=== PATIENT | male | born 2005 | race Caucasian/White ===

== ENCOUNTER 2025-03-07 19:48 | Inpatient (IN) ==
--- NOTE | 2025-03-07 20:08 | Emergency Department Note ---
Impression & Plan DKA (diabetic ketoacidosis), Newly diagnosed type 1 diabetes mellitus ED Provider Note NAME: LONI VARNER AGE: 19 SEX: M : 2005 ARRIVES VIA: Walk-In INFORMANT: Patient, ED PROVIDER(S): Henry Cruz MD CHIEF COMPLAINT: Abnormal labs concerning for diabetes MEDICAL DECISION MAKING: Patient presents with the above clinically not unwell. IV was established and blood work is obtained along with a VBG and a lactate. Patient was ordered 1 L of IV fluids. Patient does have hyperglycemia with a VBG of 7.32 with a pCO2 of 29. Patient's white count is normal with a normal hemoglobin and platelet count. Kidney function is unremarkable. Hemoglobin A1c of 10.7. Sugar 401. The patient's bicarb is 14. There was a delay in obtaining bicarb and the anion gap. I did discuss this with the hospitalist and we discussed treatment. Patient eventually was noted to have a gap of 24 with a sodium 133. Additional management of the patient's diabetes deferred to the inpatient service but based on labs concerning for DKA. Discussion w/ other healthcare providers: None Prior /Outside records reviewed: None Differential diagnosis: Diabetes, infection, dehydration, metabolic abnormality, hypo/hyperglycemia, electrolyte imbalance, anemia, UTI, pneumonia, thyroid dysfunction among others were considered. Diagnostics, as interpreted by me: ECG: Normal sinus rhythm, rate of 94 borderline MN with normal QRS normal axis T wave version in V2. No obvious STEMI. Cardiac monitoring: An order was placed for continuous cardiac monitoring. The monitor shows a rate of 102 with tachycardic and regular rhythm. Patient was placed on pulse oximetry Medical decision rules: None Imaging studies: None HPI: Patient presents due to concern for hyperglycemia. The patient reportedly has had increased thirst as well as urination ongoing the last 3 to 4 weeks. Patient states that he was concerned as he was getting up in the middle the night to go to the bathroom 3 times and thought that he was too young to have issues to where he was going to the bathroom so frequently. Patient did blood work completed through [facility] and was told that he likely had type 1 diabetes. No prior history. Patient denies any chest pain or shortness of breath no nausea vomiting or diarrhea. PAST MEDICAL HISTORY: See Below PAST SURGICAL HISTORY: See Below SOCIAL HISTORY: See Below HOME MEDICATIONS: See Below ALLERGIES: See Below VITALS: See Below PHYSICAL EXAMINATION: GENERAL: NAD, non-toxic. EYE EXAM: Normal conjunctiva. PERRL, no anisocoria and EOM's grossly intact w/o pain. OROPHARYNX: Moist mucus membranes, grossly normal dentition. NECK: Trachea midline, no stridor. LUNGS: Clear to auscultation. Normal chest wall mechanics. HEART: Tachycardic and regular, no MRG. ABDOMEN: Abdomen soft, non-tender, no masses, no rebound or guarding. BACK: No CVA TTP. SKIN: No rashes and no bruising. UPPER EXTREMITIES: Upper extremities are grossly normal. LOWER EXTREMITIES: Grossly normal, no edema. NEURO EXAM: Awake and alert, follows commands, no obvious facial asymmetry, normal speech, moves all 4 extremities. Past Med/Surg History Problem List (Updated 03/08/25 @ 19:34 by Henry Cruz MD) DKA (diabetic ketoacidosis) (Acute) Newly diagnosed type 1 diabetes mellitus (Acute) Social History Smoking Status: Never smoker Second Hand Exposure: No; Do You Dip or Chew Tobacco: No; Tobacco Cessation Education Requested by Patient: No Hx Alcohol Use: Yes Alcohol type: beer Hx Substance Use: No Preferred Language: Irish Communication Ability: Effective Cutter Wet Machine Required: No Beliefs That Will Affect Care: None Current Living Situation: Alone Other Information That Helps Us Care for You: No Feels Safe at Home: Yes Safety Concerns: Feels Safe At This Time Assistive Devices: None Allergies Allergies Allergy/AdvReac Type Severity Reaction Status Date / Time peanut Allergy Unknown Verified 10/05/24 21:02 Home Meds Home Medications Medication Instructions Recorded Confirmed diphenhydramine HCl 25 mg tablet 50 mg PO ONCE allergic reaction 10/05/24 03/07/25 (Benadryl Allergy) Results & Data (ED) Vital Signs Vital Signs - 24 hr 03/07/25 19:59 03/07/25 20:18 03/07/25 20:18 Temperature 36.6 C Temperature Source Temporal Artery Scan Pulse Rate 116 H 96 H Pulse Rate [Apical] 96 H Pulse Rhythm Regular Regular Pulse Rhythm [Apical] Regular Pulse Strength Normal Pulse Strength [Apical] Normal Respiratory Rate 18 Respiratory Effort / Characteristics Non-Labored Spontaneous Non-Labored Spontaneous Respiratory Depth Normal Normal Respiratory Pattern Regular Regular Blood Pressure 125/76 Blood Pressure [Right Arm] 128/68 Blood Pressure Mean 92 Blood Pressure Mean [Right Arm] 88 Blood Pressure Position Sitting Blood Pressure Position [Right Arm] Lying Pulse Oximetry 100 100 100 Oxygen Delivery Method Room Air Room Air Room Air Sepsis Recent Fever Within 48 Hours No Sepsis New/Unexplained Change in Mental Status N/A Sepsis Action Taken by Nursing No Action Required 03/07/25 20:46 03/07/25 22:00 Temperature Temperature Source Pulse Rate 99 H Pulse Rate [Apical] 97 H Pulse Rhythm Pulse Rhythm [Apical] Regular Pulse Strength Pulse Strength [Apical] Normal Respiratory Rate 18 Respiratory Effort / Characteristics Non-Labored Spontaneous Respiratory Depth Normal Respiratory Pattern Regular Blood Pressure Blood Pressure [Right Arm] 130/76 Blood Pressure Mean Blood Pressure Mean [Right Arm] 94 Blood Pressure Position Blood Pressure Position [Right Arm] Lying Pulse Oximetry 100 Oxygen Delivery Method Room Air Sepsis Recent Fever Within 48 Hours Sepsis New/Unexplained Change in Mental Status Sepsis Action Taken by Skilled Nursing Medications Current Medication List: was personally reviewed by me Laboratory Data Attestation: I reviewed the patient's lab results. 03/07/25 20:20 03/08/25 17:28 Lab Results 03/07/25 03/07/25 03/07/25 Range/Units 20:03 20:20 21:52 WBC 10.05 (4.8-10.8) K/ul RBC 5.15 (4.70-6.10) M/uL Hgb 15.2 (14.0-18.0) g/dl POC Hgb 13.3 L (14.0-18.0) g/dl Hct 44.2 (42.0-52.0) % POC Hct 39 L (42-52) % MCV 85.8 (80.0-100.0) fL MCH 29.5 (25.0-34.0) pg MCHC 34.4 (32.0-36.0) g/dL RDW Std Deviation 41.7 (36.4-46.3) fL RDW Coeff of Fely 13.6 (11.5-14.5) % Plt Count 187 (130-400) K/uL MPV 10.4 (9.4-12.4) fL Immature Gran % (Auto) 0.3 % Neut % (Auto) 64.6 % Lymph % (Auto) 28.0 % [place] % (Auto) 4.9 % Eos % (Auto) 1.7 % Baso % (Auto) 0.5 % Neut # (Auto) 6.50 (1.40-6.50) K/uL Lymph # (Auto) 2.81 (1.20-3.40) K/uL [place] # (Auto) 0.49 (0.11-0.59) K/uL Eos # (Auto) 0.17 (0.00-0.50) K/uL Baso # (Auto) 0.05 (0.00-0.20) K/uL Immature Gran # (Auto) 0.03 (0.01-0.20) K/uL VBG pH 7.32 L (7.36-7.41) VBG pCO2 29 L (38-50) mmHg VBG pO2 46 mmHg VBG HCO3 15 mmol/L VBG O2 Saturation 77.9 % VBG Base Excess -9.8 mEq/L POC Sodium 137 (135-144) mmol/L Sodium 133 L (136-145) mmol/L POC Potassium 3.2 L (3.3-5.0) mmol/L Potassium 3.4 L (3.5-5.1) mmol/L POC Chloride 100 L (101-112) mmol/L Chloride 95 L (98-107) mmol/L Carbon Dioxide 14 L (21-32) mmol/L POC Total CO2 14 L (24-31) mmol/L Anion Gap 24 H (3-11) POC Anion Gap 26.0 H (16-25) mmol/L POC BUN 13 (7-18) mg/dl BUN 15 (6-23) mg/dl Creatinine 1.07 (0.6-1.4) mg/dl POC Creatinine 0.8 mg/dl Est Cr Clr Drug Dosing 112.9 ml/min eGFR 101.88 BUN/Creatinine Ratio 14.0 (10-20) Glucose 401 H* (70-99(Fasting)) mg/dl POC Glucose 393 H* (70-99) mg/dl POC Glucose (other) 352 H* (70-99) mg/dl Estimat Average Glucose 260 mg/dl Hemoglobin A1c 10.7 H (4.5-5.6) % Lactate 1.6 (0.4-2.0) mmol/L Calcium 10.0 (8.6-10.3) mg/dl POC Ioniz Calcium Hai 1.17 mmol/l Magnesium 1.8 (1.7-2.4) mg/dl Total Bilirubin 1.3 H (0.2-1.0) mg/dl AST 18 (13-39) U/L ALT 19 (7-52) U/L Alkaline Phosphatase 114 H (34-104) U/L Total Protein 8.5 H (6.0-8.3) gm/dl Albumin 5.3 H (3.4-5.0) gm/dl Globulin 3.2 (2.5-4.0) gm/dl Albumin/Globulin Ratio 1.7 (0.9-2) Urine Color Yellow Urine Appearance Clear (Clear) Urine pH 5.0 (4.5-7.5) Ur Specific [place] 1.042 H (1.000-1.030) Urine Protein Trace H (Negative) Urine Glucose (UA) 2+ H (Negative) Urine Ketones 4+ H (Negative) Urine Blood Trace H (Negative) Urine Nitrite Negative (Negative) Urine Bilirubin Negative (Negative) Urine Urobilinogen Negative (Negative) Ur Leukocyte Esterase Negative (Negative) Urine WBC (Auto) 0-5 (0-5) /hpf Urine RBC (Auto) 0-2 (0-2) /hpf U Hyaline Cast (Auto) 0-2 (0-2) /lpf U Epithel Cells (Auto) 0-2 (0-2) /hpf Urine Bacteria (Auto) None Seen (None Seen) Urine Comment 03/07/25 Range/Units 21:59 WBC (4.8-10.8) K/ul RBC (4.70-6.10) M/uL Hgb (14.0-18.0) g/dl POC Hgb 13.3 L (14.0-18.0) g/dl Hct (42.0-52.0) % POC Hct 39 L (42-52) % MCV (80.0-100.0) fL MCH (25.0-34.0) pg MCHC (32.0-36.0) g/dL RDW Std Deviation (36.4-46.3) fL RDW Coeff of Fely (11.5-14.5) % Plt Count (130-400) K/uL MPV (9.4-12.4) fL Immature Gran % (Auto) % Neut % (Auto) % Lymph % (Auto) % [place] % (Auto) % Eos % (Auto) % Baso % (Auto) % Neut # (Auto) (1.40-6.50) K/uL Lymph # (Auto) (1.20-3.40) K/uL [place] # (Auto) (0.11-0.59) K/uL Eos # (Auto) (0.00-0.50) K/uL Baso # (Auto) (0.00-0.20) K/uL Immature Gran # (Auto) (0.01-0.20) K/uL VBG pH (7.36-7.41) VBG pCO2 (38-50) mmHg VBG pO2 mmHg VBG HCO3 mmol/L VBG O2 Saturation % VBG Base Excess mEq/L POC Sodium 136 (135-144) mmol/L Sodium (136-145) mmol/L POC Potassium 3.2 L (3.3-5.0) mmol/L Potassium (3.5-5.1) mmol/L POC Chloride 102 (101-112) mmol/L Chloride (98-107) mmol/L Carbon Dioxide (21-32) mmol/L POC Total CO2 15 L (24-31) mmol/L Anion Gap (3-11) POC Anion Gap 24.0 (16-25) mmol/L POC BUN 13 (7-18) mg/dl BUN (6-23) mg/dl Creatinine (0.6-1.4) mg/dl POC Creatinine 0.8 mg/dl Est Cr Clr Drug Dosing ml/min eGFR BUN/Creatinine Ratio (10-20) Glucose (70-99(Fasting)) mg/dl POC Glucose (70-99) mg/dl POC Glucose (other) 350 H (70-99) mg/dl Estimat Average Glucose mg/dl Hemoglobin A1c (4.5-5.6) % Lactate (0.4-2.0) mmol/L Calcium (8.6-10.3) mg/dl POC Ioniz Calcium Hai 1.18 mmol/l Magnesium (1.7-2.4) mg/dl Total Bilirubin (0.2-1.0) mg/dl AST (13-39) U/L ALT (7-52) U/L Alkaline Phosphatase (34-104) U/L Total Protein (6.0-8.3) gm/dl Albumin (3.4-5.0) gm/dl Globulin (2.5-4.0) gm/dl Albumin/Globulin Ratio (0.9-2) Urine Color Urine Appearance (Clear) Urine pH (4.5-7.5) Ur Specific [place] (1.000-1.030) Urine Protein (Negative) Urine Glucose (UA) (Negative) Urine Ketones (Negative) Urine Blood (Negative) Urine Nitrite (Negative) Urine Bilirubin (Negative) Urine Urobilinogen (Negative) Ur Leukocyte Esterase (Negative) Urine WBC (Auto) (0-5) /hpf Urine RBC (Auto) (0-2) /hpf U Hyaline Cast (Auto) (0-2) /lpf U Epithel Cells (Auto) (0-2) /hpf Urine Bacteria (Auto) (None Seen) Urine Comment Administered Medications Potassium Chloride/Sodium Chloride (1/2 Nss + 20meq Kcl 1000ml) 20 meq in 1,000 mls @ 250 mls/hr IV .Q4H TERRY Stop: 03/11/25 11:14 Last Admin: 03/08/25 17:00 Dose: 250 mls/hr Documented By: Infusion: 03/08/25 15:24 Dose: Infused Documented By: Admin: 03/08/25 11:24 Dose: 250 mls/hr Documented By: CHINEDU Insulin Aspart (Insulin Aspart Per Unit Charge) 0 units SC ACHS TERRY Stop: 04/07/25 11:29 Last Admin: 03/08/25 17:48 Dose: 5 units Documented By: CHINEDU Co-signed By: ARLENE Admin: 03/08/25 12:43 Dose: 8 units Documented By: CHINEDU Co-signed By: CLIFF Discontinued Medications Sodium Chloride (Nss) 1,000 mls @ 999 mls/hr IV .Q1H1M TERRY Stop: 03/07/25 21:30 Last Infusion: 03/07/25 21:47 Dose: Infused Documented By: Admin: 03/07/25 20:26 Dose: 999 mls/hr Documented By: JOHANNA Lactated Ringer's (Lr) 1,000 mls @ 999 mls/hr IV .Q1H1M ONE Stop: 03/07/25 23:35 Last Admin: 03/07/25 22:54 Dose: Not Given Documented By: JOHANNA Sodium Chloride (Nss) 1,000 mls @ 999 mls/hr IV .Q1H1M ONE Stop: 03/07/25 23:39 Last Infusion: 03/08/25 00:06 Dose: Infused Documented By: Admin: 03/07/25 22:53 Dose: 999 mls/hr Documented By: MPD Potassium Chloride/Sodium Chloride (1/2 Nss + 20meq Kcl 1000ml) 20 meq in 1,000 mls @ 250 mls/hr IV .Q4H TERRY Stop: 03/10/25 22:59 Last Infusion: 03/08/25 02:28 Dose: Infused Documented By: Admin: 03/08/25 00:04 Dose: 250 mls/hr Documented By: ESTRELLA Insulin Human Regular 250 (units/ Sodium Chloride) 250 mls @ 1.2 mls/hr IV .Q24H TERRY; Protocol Stop: 04/07/25 00:02 Last Titration: 03/08/25 11:15 Dose: Infused Documented By: LMP Co-signed By: ARLENE Titration: 03/08/25 10:04 Dose: 1.2 units/hr, 1.2 mls/hr Documented By: LMP Co-signed By: MES Titration: 03/08/25 09:19 Dose: 1.2 units/hr, 1.2 mls/hr Documented By: LMP Co-signed By: AJB Titration: 03/08/25 08:23 Dose: 1 units/hr, 1 mls/hr Documented By: LMP Co-signed By: KJM Titration: 03/08/25 06:20 Dose: 0 units/hr, 0 mls/hr Documented By: MPC Co-signed By: FREIGHT ENGINEER Titration: 03/08/25 05:24 Dose: 2.4 units/hr, 2.4 mls/hr Documented By: MPC Co-signed By: FREIGHT ENGINEER Titration: 03/08/25 04:01 Dose: 3 units/hr, 3 mls/hr Documented By: MPC Co-signed By: MARCO Titration: 03/08/25 02:56 Dose: 3 units/hr, 3 mls/hr Documented By: MPC Co-signed By: JAA Titration: 03/08/25 02:32 Dose: 3 units/hr, 3 mls/hr Documented By: ESTRELLA Co-signed By: MARCO Titration: 03/08/25 02:03 Dose: 0 units/hr, 0 mls/hr Documented By: ESTRELLA Co-signed By: MARCO Admin: 03/08/25 00:48 Dose: 5 units/hr, 5 mls/hr Documented By: ESTRELLA Co-signed By: PATRICIA Insulin Human Regular 5 units/ (Syringe) 5 mls @ 0 mls/min IV ONE ONE Stop: 03/08/25 00:31 Last Admin: 03/08/25 00:46 Dose: 5 mls/min Documented By: ESTRELLA Co-signed By: PATRICIA Magnesium Sulfate/Dextrose (Magnesium Sulfate / D5w) 1 gm in 100 mls @ 50 mls/hr IV Q2H TERRY Stop: 03/08/25 05:44 Last Infusion: 03/08/25 05:55 Dose: Infused Documented By: Admin: 03/08/25 03:42 Dose: 50 mls/hr Documented By: Infusion: 03/08/25 03:40 Dose: Infused Documented By: Admin: 03/08/25 01:55 Dose: 50 mls/hr Documented By: ESTRELLA Potassium Chloride/Dextrose/Sod Cl (D5w And 1/2nss + 20meq Kcl) 20 meq in 1,000 mls @ 250 mls/hr IV .Q4H [facility] Stop: 03/11/25 02:29 Last Admin: 03/08/25 13:07 Dose: Not Given Documented By: Infusion: 03/08/25 11:27 Dose: Infused Documented By: Admin: 03/08/25 06:42 Dose: 250 mls/hr Documented By: Infusion: 03/08/25 06:29 Dose: Infused Documented By: Admin: 03/08/25 02:29 Dose: 250 mls/hr Documented By: ESTRELLA Magnesium Sulfate/Dextrose (Magnesium Sulfate / D5w) 1 gm in 100 mls @ 50 mls/hr IV ONE ONE Stop: 03/08/25 12:11 Last Infusion: 03/08/25 13:08 Dose: Infused Documented By: Admin: 03/08/25 11:05 Dose: 50 mls/hr Documented By: CHINEDU Potassium Phosphate 15 mmol/ (Sodium Chloride) 255 mls @ 88 mls/hr IV ONE ONE Stop: 03/08/25 13:23 Last Infusion: 03/08/25 14:04 Dose: Infused Documented By: Admin: 03/08/25 11:04 Dose: 88 mls/hr Documented By: LMP Insulin Aspart (Insulin Aspart Per Unit Charge) 0 units SC ACHS TERRY Stop: 04/07/25 07:29 Last Admin: 03/08/25 08:37 Dose: 3 units Documented By: LMP Co-signed By: ANA Insulin Glargine (Lantus Per Unit Charge) 12 units SQ NOW STA Stop: 03/08/25 07:42 Last Admin: 03/08/25 08:10 Dose: 12 units Documented By: LMP Co-signed By: NAPOLEON Insulin Glargine (Lantus Per Unit Charge) 6 units SQ NOW STA Stop: 03/08/25 11:09 Last Admin: 03/08/25 11:20 Dose: 6 units Documented By: LMP Co-signed By: ARLENE Potassium Chloride (Potassium Chloride Crtab 20 Meq Tabcr) 40 meq PO NOW STA Stop: 03/07/25 22:54 Last Admin: 03/07/25 23:30 Dose: 40 meq Documented By: Potassium Chloride (Potassium Chloride Crtab 20 Meq Tabcr) 40 meq PO NOW STA Stop: 03/08/25 01:33 Last Admin: 03/08/25 01:55 Dose: 40 meq Documented By: ESTRELLA Potassium Chloride (Potassium Chloride Crtab 20 Meq Tabcr) 40 meq PO NOW STA Stop: 03/08/25 07:18 Last Admin: 03/08/25 08:10 Dose: 40 meq Documented By: LMP Discharge Plan Visit Data Chief Complaint: Testing Request Stated Complaint: DIABETES EVALUATION ED Provider: Henry Cruz Discharge Problem: DKA (diabetic ketoacidosis), Newly diagnosed type 1 diabetes mellitus Patient Disposition: Admitted As Inpatient Condition: Good Discharge Instructions Interventions: ED Discharge Assessment Last Done: 03/07/25 23:35 Discharge Problem: DKA (diabetic ketoacidosis) Qualifiers: Diabetes mellitus type: type 1 Diabetes mellitus complication detail: without coma Qualified Code(s): E10.10 - Type 1 diabetes mellitus with ketoacidosis without coma
[2025-03-07] MEDS: SODIUM CHLORIDE 0.9% 1,000 ML IV SCH (20:26)
[2025-03-07 20:37] LABS: Base Excess VBG -9.8 mEq/L; HCO3 VBG 15 mmol/L; Oxygen Saturation VBG 77.9 %; PCO2 VBG 29 mmHg (38-50); PO2 VBG 46 mmHg; pH VBG 7.32 (7.36-7.41)
[2025-03-07 20:40] LABS: Hematocrit (blood only) 44.2 % (42.0-52.0); Hemoglobin 15.2 g/dl (14.0-18.0); Immature Granulocytes # (auto) 0.03 K/uL (0.01-0.20); Immature Granulocytes % (auto) 0.3 %; Mean Corpuscular Hemoglobin 29.5 pg (25.0-34.0); Mean Corpuscular Volume 85.8 fL (80.0-100.0); Platelet Count 187 K/uL (130-400); RDW Standard Deviation 41.7 fL (36.4-46.3); Red Blood Count 5.15 M/uL (4.70-6.10); White Blood Count 10.05 K/ul (4.8-10.8)
[2025-03-07 20:54] LABS: Appearance Urine Clear (Clear); Bacteria Urine Automated None Seen (None Seen); Cast Urine Automated 0-2 /lpf (0-2); Epithelial Cell Urine Auto 0-2 /hpf (0-2); Glucose Urine UA 2+ (Negative); RBC Urine Automated 0-2 /hpf (0-2); WBC Urine Automated 0-5 /hpf (0-5)
[2025-03-07 21:04] LABS: Alanine Aminotransferase 19.0 U/L (7-52); Albumin Globulin Ratio 1.7 (0.9-2); Alkaline Phosphatase 114.0 U/L (34-104); Bilirubin,Total 1.3 mg/dl (0.2-1.0); Blood Urea Nitrogen 15.0 mg/dl (6-23); Calcium 10.0 mg/dl (8.6-10.3); Carbon Dioxide 14.0 mmol/L (21-32); Creatinine Clr Calc Pharmacy 112.9 ml/min; Globulin 3.2 gm/dl (2.5-4.0); Glucose 401.0 mg/dl (70-99(Fasting)); Total Protein 8.5 gm/dl (6.0-8.3)
[2025-03-07 22:17] LABS: Anion Gap 24.0 (3-11); Chloride 95.0 mmol/L (98-107); Potassium 3.4 mmol/L (3.5-5.1); Sodium 133.0 mmol/L (136-145)
[2025-03-07 22:34] LABS: Hemoglobin A1C 10.7 % (4.5-5.6)
--- NOTE | 2025-03-07 22:52 | History & Physical Report ---
Date of Service March 07, 2025 Assessment & Plan (1) DKA (diabetic ketoacidosis): (2) Newly diagnosed type 1 diabetes mellitus: Plan Patient is a 19 y/o M who was admitted for management of DKA in the setting of newly diagnosed diabetes mellitus. DKA - Admit to PCU/Tele - s/p NSS 1L bolus x2 in ED and 1/2 NSS w/ 20mEq K+ started after - Insulin gtt ordered - Bsg checks q1h - BMP, Mg, VBG q4h - Switch NSS to D5 once bsg < 250 - D/c insulin drip once AG closes and bsg < 200, at which point will switch to insulin subQ which could potentially be administered 2 hrs before d/c drip to try and prevent rebound hyperglycemia Diabetes mellitus, new diagnosis - No family history of DM and no other personal medical history - Hgb A1c at time of admission of ~10% - Given current presentation, suspect type 1 to be likely - Likely would be discharged with insulin regimen - Would encourage establishing care with PCP or endocrinology for continued monitoring and management after discharge Dispo: PCU/Tele Diet: DM-2 VTE ppx: Ambulation Code Status: FULL History of Present Illness Chief Complaint: Abnormal labs Primary Care Provider: [facility] Patient is a 19 y/o M w/ no significant medical history who came to the ED per recc of provider in [facility] after noting to have significantly elevated BSG. Over the last 3 months, patient has been experiencing polyuria and polydipsia w/o polyphagia or changes in appetite. Over the last 3 days, patient reports having frequent episodes of nocturia as well which prompted him to go to [facility] for evaluation, where he was also noted to have lost close to 15 lbs unintentionally. Denies having any confusion, weakness, N/V/D, abdominal pain, headaches, vision changes, lightheadedness, dizziness, syncopal episodes, fevers, chills, chest pain, SOB, or other associated sxs. They had collected labs in this visit where they found his blood sugar to be very elevated with associated electrolyte changes (cannot recall what or the levels), and was advised to go to ED. Patient denies having any family history of diabetes mellitus and no other personal medical history save for seasonal allergies for which he takes claritin as needed. ED Course: NSS bolus x1 Labs/Imaging: CBC w/o leukocytosis, hgb of 15.2, plt of 187. CMP with hyponatremia of 133, potassium of 3.4, HCO3 of 14, AG of 24, Cr of 1.07, and bsg of 401. VBG with pH of 7.32 and pCO2 of 29. Hgb A1c of 10.75. T.bili or 1.3 and alk phos of 114, AST and ALT wnl. U/A w/o signds of infection but is showing trace proteins, 2+ glucose, 4+ ketones, and trace blood. Medical History: [Reviewed] Medications: [Reviewed] Surgical History: [Reviewed] Family history: [Reviewed] Allergies: [Reviewed] Social History: [Reviewed] Code Status: FULL Allergies Allergy/AdvReac Type Severity Reaction Status Date / Time peanut Allergy Unknown Verified 10/05/24 21:02 Home Medications Medication Instructions Recorded Confirmed Type diphenhydramine HCl 25 mg tablet 50 mg PO ONCE allergic reaction 10/05/24 03/07/25 History (Benadryl Allergy) Past Med/Surg History Problem List (Updated 03/08/25 @ 19:34 by Henry Cruz MD) DKA (diabetic ketoacidosis) (Acute) Newly diagnosed type 1 diabetes mellitus (Acute) Social History Smoking Status: Never smoker Second Hand Exposure: No; Do You Dip or Chew Tobacco: No; Tobacco Cessation Education Requested by Patient: No Hx Alcohol Use: Yes Alcohol type: beer Hx Substance Use: No Preferred Language: Urdu Communication Ability: Effective Stitcher Set Up Operator Automatic Required: No Beliefs That Will Affect Care: None Current Living Situation: Alone Other Information That Helps Us Care for You: No Feels Safe at Home: Yes Safety Concerns: Feels Safe At This Time Assistive Devices: None Review of Systems Review of Systems: As per HPI Physical Exam Physical Exam: GENERAL: AAOx3, afebrile, calm, non toxic, NAD HEAD: AT, NC EYES: EOM intact, LUIS THROAT: normal to visual inspection CHEST: symmetric chest expansions CARDIO: RRR, no r/m/g PULMONARY: CTA b/l, normal respiratory effort, no respiratory distress, breathing comfortably at room air GI: soft, nontender, nondistended EXTREMITIES: no swelling or calf tenderness in b/l LE SKIN: no rashes observed Results & Data Results & Data Vital Signs (Past 12 Hours) Vital Signs Temp Pulse Pulse Resp BP BP Pulse Ox 03/07/25 22:00 97 H 18 130/76 100 03/07/25 20:46 99 H 03/07/25 20:18 96 H 100 03/07/25 20:18 96 H 128/68 100 03/07/25 19:59 36.6 C 116 H 18 125/76 100 O2 Del Method 03/07/25 22:00 Room Air 03/07/25 20:46 03/07/25 20:18 Room Air 03/07/25 20:18 Room Air 03/07/25 19:59 Room Air Supervising Physician Co-Signing Physician Notes Attending addendum: I have physically seen this patient, have supervised the medical residents activities, and agree with the H&P unless as otherwise noted. Assessment and Plan: The patient is a 19-year-old male with no previous medical history, who presented to the emergency department reporting a generalized just does not feel well, being fatigued, urinating frequently, and has had a 15 pound weight loss in the past 3 months. In emergency department laboratories with glucose of 401, and A1c of 10.7, with anion gap of 24, suggesting DKA with new onset diabetes mellitus. Patient was referred for to the [facility] for further evaluation and treatment. DKA/new onset diabetes mellitus type 1- Admit to PCU due to intensive nursing needed Glucose 401 on admission with A1c 10.7 and anion gap 24 Status post 1 L normal saline bolus x 2 from the ED Start insulin drip per protocol Give Klor-Con 40 mill equivalents p.o. x 1 Placed on half-normal saline with KCl 20 mEq at 250 mL/h, adding D5 with glucose is less than 250 Continue to adjust IV fluids per protocol Endpoint for treatment is normal anion gap, then convert insulin drip to subcu long-acting and short acting coverage BS she has every hour BMP, magnesium, VBG every 4 hours Resident Activity Tracking Resident Involvement: Resident Care Provided Care Provided: Adult Hospital Medicine
[2025-03-07] MEDS: SODIUM CHLORIDE 0.9% 1,000 ML IV ONE (22:53)
[2025-03-07] MEDS: LACTATED RINGER'S 1,000 ML IV ONE (22:54)
[2025-03-07 23:29] LABS: Base Excess VBG -8.6 mEq/L; HCO3 VBG 17 mmol/L; Oxygen Saturation VBG 70.2 %; PCO2 VBG 33 mmHg (38-50); PO2 VBG 42 mmHg; pH VBG 7.31 (7.36-7.41)
[2025-03-07] MEDS: POTASSIUM CHLORIDE CRTAB 20 MEQ TABCR PO STA (23:30)
[2025-03-07 23:59] LABS: Magnesium 1.8 mg/dl (1.7-2.4)
[2025-03-08] MEDS ORDERED: MELATONIN 3 MG TAB PO PRN (00:03)
[2025-03-08] MEDS ORDERED: ACETAMINOPHEN 325 MG TAB PO PRN (00:03)
[2025-03-08] MEDS ORDERED: STAT IV Infusion **Titration per Protocol STA (00:03)
[2025-03-08] MEDS ORDERED: PENDING 1/2NSS+20mEq KCL IVF SCH (00:03)
[2025-03-08] MEDS ORDERED: ONDANSETRON INJ 2 MG/ML 2 ML VIAL IV PRN (00:03)
[2025-03-08] MEDS ORDERED: PHARMACY GLYCEMIC MGMT CONSULT PRN (00:03)
[2025-03-08] MEDS ORDERED: POLYETHYLENE (MIRALAX) 17 GM PACK PO PRN (00:03)
[2025-03-08] MEDS: SODIUM CHLOR 0.45% + 20MEQ KCL 20 MEQ/1,000 ML BAG IV SCH ×2 (00:04→11:24)
[2025-03-08] MEDS: INSULIN HUMAN REGULAR IV BOLUS 5 UNITS in SYRINGE 0 ML IV ONE (00:46)
[2025-03-08] MEDS: INSULIN REGULAR 250 UNITS in SODIUM CHLORIDE 0.9% 247.5 ML IV SCH (00:48)
[2025-03-08 01:10] LABS: Magnesium 1.5 mg/dl (1.7-2.4)
[2025-03-08 01:15] LABS: Anion Gap 15.0 (3-11); Blood Urea Nitrogen 11.0 mg/dl (6-23); Calcium 7.8 mg/dl (8.6-10.3); Carbon Dioxide 16.0 mmol/L (21-32); Chloride 104.0 mmol/L (98-107); Creatinine Clr Calc Pharmacy 147.4 ml/min; Glucose 291.0 mg/dl (70-99(Fasting)); Potassium 3.3 mmol/L (3.5-5.1); Sodium 135.0 mmol/L (136-145)
[2025-03-08] MEDS: MAGNESIUM SULFATE / D5W 1 GM/100 ML BAG IV SCH (01:55)
[2025-03-08] MEDS: POTASSIUM CHLORIDE CRTAB 20 MEQ TABCR PO STA ×2 (01:55→08:10)
[2025-03-08] MEDS: D5W AND 1/2NSS + 20MEQ KCL 20 MEQ/1,000 ML BAG IV SCH (02:29)
[2025-03-08 06:51] LABS: Anion Gap 9.0 (3-11); Blood Urea Nitrogen 9.0 mg/dl (6-23); Calcium 7.5 mg/dl (8.6-10.3); Carbon Dioxide 21.0 mmol/L (21-32); Chloride 108.0 mmol/L (98-107); Creatinine Clr Calc Pharmacy 181.6 ml/min; Glucose 123.0 mg/dl (70-99(Fasting)); Magnesium 2.2 mg/dl (1.7-2.4); Potassium 3.0 mmol/L (3.5-5.1); Sodium 138.0 mmol/L (136-145)
[2025-03-08] MEDS: LANTUS PER UNIT CHARGE SQ STA ×2 (08:10→11:20)
[2025-03-08] MEDS: INSULIN ASPART PER UNIT CHARGE SC SCH ×2 (08:37→12:43)
[2025-03-08 10:05] LABS: Anion Gap 10.0 (3-11); Blood Urea Nitrogen 7.0 mg/dl (6-23); Calcium 7.6 mg/dl (8.6-10.3); Carbon Dioxide 20.0 mmol/L (21-32); Chloride 105.0 mmol/L (98-107); Creatinine Clr Calc Pharmacy 193.0 ml/min; Glucose 273.0 mg/dl (70-99(Fasting)); Potassium 3.5 mmol/L (3.5-5.1); Sodium 135.0 mmol/L (136-145)
[2025-03-08 10:07] LABS: Magnesium 1.8 mg/dl (1.7-2.4)
[2025-03-08] MEDS ORDERED: POTASSIUM PHOS 3 MMOL/1 ML INFUSION IV STA (10:12)
[2025-03-08] MEDS: POTASSIUM PHOSPHATE 15 MMOL in SODIUM CHLORIDE 0.9% 250 ML IV ONE (11:04)
[2025-03-08] MEDS: MAGNESIUM SULFATE / D5W 1 GM/100 ML BAG IV ONE (11:05)
[2025-03-08] MEDS ORDERED: INSULIN ASPART PER UNIT CHARGE SC ONE (11:10)
[2025-03-08] MEDS ORDERED: GLUCAGON FOR INJ 1 MG VIAL SQ PRN (11:15)
[2025-03-08] MEDS ORDERED: CARBOHYDRATES FOR HYPOGLYCEMIA PO PRN (11:15)
[2025-03-08] MEDS ORDERED: GLUCOSE 40% GEL 15 GM TUBE PO PRN (11:15)
[2025-03-08] MEDS ORDERED: GLUCOSE 10 TAB/TUBE PO PRN (11:15)
[2025-03-08] MEDS ORDERED: DEXTROSE 50% 50 ML SYRINGE IV PRN (11:15)
--- NOTE | 2025-03-08 11:59 | Hospitalist Progress Note ---
Date of Service March 08, 2025 Assessment & Plan (1) DKA (diabetic ketoacidosis): (2) Newly diagnosed type 1 diabetes mellitus: Plan Patient is a 19 y/o M who was admitted for management of DKA in the setting of newly diagnosed diabetes mellitus. DKA - Admit to PCU/Tele - s/p NSS 1L bolus x2 in ED and 1/2 NSS w/ 20mEq K+ started after - Insulin gtt ordered - Bsg checks q1h - BMP, Mg, VBG q4h - Switch NSS to D5 once bsg < 250 - D/c insulin drip once AG closes and bsg < 200, at which point will switch to insulin subQ which could potentially be administered 2 hrs before d/c drip to try and prevent rebound hyperglycemia - Will do the 18U of basal insulin per day and adjust aspart insulin monitoring his blood glucose. Diabetes mellitus, new diagnosis - No family history of DM and no other personal medical history - Hgb A1c at time of admission of ~10% - Given current presentation, suspect type 1 to be likely - Likely would be discharged with insulin regimen - Would encourage establishing care with PCP or endocrinology for continued monitoring and management after discharge - Consult the community nutrition educator to educate more about the diabetic management at home. Dispo: PCU/Tele Diet: DM-2 VTE ppx: Ambulation Code Status: FULL Admission and Anticipated Discharge Date Admission Date: March 07, 2025 Supervising Physician Co-Signing Physician Notes I personally examined the patient and verified all monzon points of history and exam, discussed case, and agree with decision making with Dr Reno Feeling better. Extensive discussions on DKA/type 1 diabetes as well as chronic diabetes management. He expresses good understanding. Vitals noted, in general he is awake and alert pleasant no distress. HEENT normocephalic atraumatic mucous membranes moist. Breathing unlabored no accessory muscle use good effort. Skin without rashes pallor or icterus. Neuro without focal deficits. Labs and diagnostics noted. New onset type 1 diabetes/DKAimproving. Switch to subcu insulin. Ongoing education. Reduce/stop IV fluids. Hopefully home tomorrow. Otherwise as above. Subjective Reports feeling better today. Had 3 weeks of polyuria, polyphagia, weight loss to the point he had to wake up at night to pee. He was sent from the clinic after lab showed possible DKA. No H/o abdominal pain, dizziness, N/V. Review of Systems Review of Systems: As per HPI Physical Exam Physical Exam: GENERAL: AAOx3, afebrile, calm, non toxic, NAD HEAD: AT, NC EYES: EOM intact, LUIS THROAT: normal to visual inspection CHEST: symmetric chest expansions CARDIO: RRR, no r/m/g PULMONARY: CTA b/l, normal respiratory effort, no respiratory distress, breathing comfortably at room air GI: soft, nontender, nondistended EXTREMITIES: no swelling or calf tenderness in b/l LE SKIN: no rashes observed Results & Data Results & Data Vital Signs (Past 12 Hours) Vital Signs Temp Pulse Pulse Resp BP Pulse Ox Pulse Ox 03/08/25 08:00 65 03/08/25 07:36 36.6 C 71 17 111/68 96 03/08/25 03:59 36.5 C 72 14 105/71 100 03/08/25 00:03 36.7 C 82 18 134/65 95 03/08/25 00:03 96 03/07/25 23:59 82 O2 Del Method O2 Del Method 03/08/25 08:00 03/08/25 07:36 Room Air 03/08/25 03:59 Room Air 03/08/25 00:03 Room Air 03/08/25 00:03 Room Air 03/07/25 23:59
--- NOTE | 2025-03-08 13:41 | Billing Data ---
Date of Service March 08, 2025 Coding Level of Care Code 77067 SUB INP/OBS CARE MIN
[2025-03-08 13:44] LABS: Anion Gap 10.0 (3-11); Blood Urea Nitrogen 6.0 mg/dl (6-23); Calcium 8.0 mg/dl (8.6-10.3); Carbon Dioxide 19.0 mmol/L (21-32); Chloride 105.0 mmol/L (98-107); Creatinine Clr Calc Pharmacy 181.6 ml/min; Glucose 263.0 mg/dl (70-99(Fasting)); Magnesium 2.0 mg/dl (1.7-2.4); Potassium 3.9 mmol/L (3.5-5.1); Sodium 134.0 mmol/L (136-145)
[2025-03-08 18:10] LABS: Anion Gap 12.0 (3-11); Blood Urea Nitrogen 8.0 mg/dl (6-23); Calcium 8.5 mg/dl (8.6-10.3); Carbon Dioxide 19.0 mmol/L (21-32); Chloride 104.0 mmol/L (98-107); Creatinine Clr Calc Pharmacy 171.5 ml/min; Glucose 191.0 mg/dl (70-99(Fasting)); Magnesium 1.9 mg/dl (1.7-2.4); Potassium 3.7 mmol/L (3.5-5.1); Sodium 135.0 mmol/L (136-145)
[2025-03-08 21:09] LABS: Blood Urea Nitrogen 9.0 mg/dl (6-23); Calcium 8.9 mg/dl (8.6-10.3); Carbon Dioxide 21.0 mmol/L (21-32); Creatinine Clr Calc Pharmacy 128.6 ml/min; Glucose 231.0 mg/dl (70-99(Fasting)); Magnesium 1.8 mg/dl (1.7-2.4)
--- NOTE | 2025-03-08 21:31 | Billing Data ---
Date of Service March 08, 2025 Coding Level of Care Code 27941 INT INP/OBS CARE
[2025-03-08 21:55] LABS: Anion Gap 11.0 (3-11); Chloride 103.0 mmol/L (98-107); Potassium 3.5 mmol/L (3.5-5.1); Sodium 135.0 mmol/L (136-145)
[2025-03-09 06:29] LABS: Anion Gap 10.0 (3-11); Blood Urea Nitrogen 8.0 mg/dl (6-23); Calcium 8.8 mg/dl (8.6-10.3); Carbon Dioxide 23.0 mmol/L (21-32); Chloride 104.0 mmol/L (98-107); Creatinine Clr Calc Pharmacy 186.9 ml/min; Potassium 3.4 mmol/L (3.5-5.1); Sodium 137.0 mmol/L (136-145)
--- NOTE | 2025-03-09 07:15 | Discharge Summary ---
Date of Service March 09, 2025 Admission HPI Per Admitting Provider Patient is a 19 y/o M w/ no significant medical history who came to the ED per recc of provider in [facility] after noting to have significantly elevated BSG. Over the last 3 months, patient has been experiencing polyuria and polydipsia w/o polyphagia or changes in appetite. Over the last 3 days, patient reports having frequent episodes of nocturia as well which prompted him to go to [facility] for evaluation, where he was also noted to have lost close to 15 lbs unintentionally. Denies having any confusion, weakness, N/V/D, abdominal pain, headaches, vision changes, lightheadedness, dizziness, syncopal episodes, fevers, chills, chest pain, SOB, or other associated sxs. They had collected labs in this visit where they found his blood sugar to be very elevated with associated electrolyte changes (cannot recall what or the levels), and was advised to go to ED. Patient denies having any family history of diabetes mellitus and no other personal medical history save for seasonal allergies for which he takes claritin as needed. ED Course: NSS bolus x1 Labs/Imaging: CBC w/o leukocytosis, hgb of 15.2, plt of 187. CMP with hyponatremia of 133, potassium of 3.4, HCO3 of 14, AG of 24, Cr of 1.07, and bsg of 401. VBG with pH of 7.32 and pCO2 of 29. Hgb A1c of 10.75. T.bili or 1.3 and alk phos of 114, AST and ALT wnl. U/A w/o signds of infection but is showing trace proteins, 2+ glucose, 4+ ketones, and trace blood. Medical History: [Reviewed] Medications: [Reviewed] Surgical History: [Reviewed] Family history: [Reviewed] Allergies: [Reviewed] Social History: [Reviewed] Code Status: FULL Admission Exam Per Admitting Provider GENERAL: AAOx3, afebrile, calm, non toxic, NAD HEAD: AT, NC EYES: EOM intact, LUIS THROAT: normal to visual inspection CHEST: symmetric chest expansions CARDIO: RRR, no r/m/g PULMONARY: CTA b/l, normal respiratory effort, no respiratory distress, breathing comfortably at room air GI: soft, nontender, nondistended EXTREMITIES: no swelling or calf tenderness in b/l LE SKIN: no rashes observed Principal Diagnosis Diabetic ketoacidosis Discharge Exam GENERAL: AAOx3, afebrile, calm, non toxic, NAD HEAD: AT, NC EYES: EOM intact, LUIS THROAT: normal to visual inspection CHEST: symmetric chest expansions CARDIO: RRR, no r/m/g PULMONARY: CTA b/l, normal respiratory effort, no respiratory distress, breathing comfortably at room air GI: soft, nontender, nondistended EXTREMITIES: no swelling or calf tenderness in b/l LE SKIN: no rashes observed Discharge Data Allergies Allergy/AdvReac Type Severity Reaction Status Date / Time peanut Allergy Unknown Verified 10/05/24 21:02 Consultations 03/07/25 21:36 ED Decision to Admit Stat Hospital Course (1) DKA (diabetic ketoacidosis): (2) Newly diagnosed type 1 diabetes mellitus: Plan Patient is a 19 y/o M who was admitted for management of DKA in the setting of newly diagnosed diabetes mellitus. DKA - Admit to PCU/Tele - s/p NSS 1L bolus x2 in ED and / NSS w/ 20mEq K+ started after - Insulin gtt ordered - Bsg checks q1h - Switch NSS to D5 once bsg < 250 -Insulin drip once AG closes and bsg < 200, will switch to insulin subQ which could potentially be administered 2 hrs before d/c drip to try and prevent rebound hyperglycemia - 18U of basal insulin per day and adjust aspart insulin monitoring his blood glucose in hospital. - Will discharge him on 20U of lantus insulin and adjust on 8U bolus insulin monitoring his blood sugar. Diabetes mellitus, new diagnosis - No family history of DM and no other personal medical history - Hgb A1c at time of admission of ~10% - Given current presentation, suspect type 1 to be likely - Likely would be discharged with insulin regimen - Would encourage establishing care with PCP or endocrinology for continued monitoring and management after discharge - Consult the diabetes educator to educate more about the diabetic management at home. Dispo: PCU/Tele Diet: DM-2 VTE ppx: Ambulation Code Status: FULL Total Time Total Time Spent Total Time Spent (In Minutes): >30 Discharge Plan Discharge Items Patient Disposition: Home - Self-Care Reason For Visit: DIABETES EVALUATION Discharge Diagnosis: Diabetic Ketoacidosis Condition on Discharge: Good Activity: Resume your previous activity Non-emergency contact: Primary Care Provider Call non-emergency contact if: your symptoms worsen Follow-up/Referrals: Archana Perry RD, LDN, CDE [Registered Dietitian] - 03/21/25 2:00 pm [facility] [Primary Care Provider] - Héctor Inman MD [Physician] - 03/14/25 11:00 am (THIS IS AT THE [facility] [address] [place] [address] If you need to change this appointment please call [phone]) Dick Waters DO [Physician] - 03/16/25 10:30 am (Hospital follow up- will need to schedule establish care appointment at this appointment.) Diet: Carb Count or DM1 Addtl Attending Provider Instructions: New onset type 1 diabetes - as we discussed, what happens with type 1 diabetes is "our immune system goes rogue" and attacks are pancreasbecause her pancreas makes insulin, when the immune system has destroyed enough of water called beta cells (the insulin producing cells) that her body is no longer able to make insulin - because insulin is what gets sugar out of our bloodstream and into our muscles, once we have no insulin the sugar to stay is in her bloodstreamthe diabetic ketoacidosis process happens because that high sugar, by osmosis, pulls water from our cells into our bloodstream. Our kidneys, only seeing what is coming down the renal artery, act as though we are well-hydratedNP off all of that water. This in turn leads to dehydration, and part of our physiologic response to stressors like dehydration is secreting cortisol. Unfortunately, cortisol raises are sugar higherand the whole process spirals out of control. (This is what caused you to have progressive increase in urination, and progressive dehydrationin spite of anything you could do to stop it) - getting you hydrated, and getting you on insulin stops the diabetic ketoacidosis process -as far as managing the diabetes chronicallyas we discussed this is a problem that does not go away, but generally speaking I would look at it as "high maintenance but easy" once you get a feel for things - the most important part of taking care of diabetes is understanding why it is important to do so. Typically we as doctors do a fairly poor job of teaching thisbut really, the basics, is "high sugars clogged arteries"i.e. the higher our sugar runs, and the longer it runs high, the more we knock off blood vessels we cannot get back. - While the most famous complications for diabetes are things like blindness (high sugar blocking up the arteries to the back of our eyes), neuropathy (high sugar clogging the arteries to the long nerves down to her feet and legs), and kidney failure (high sugar blocking up the small blood vessels in our kidneys), actually the most common complications are things like heart attacks and strokes. - The good news is none of those complications are "your marcial"but really only happen whenever people struggle to keep their sugar under control. - The best data on making sense of "high sugars clog arteries" ties together to A1c levels - and A1c is a marker of how sugar covered your red blood cells are (i.e. how much your red blood cells look like a glazed doughnut)because red blood cells live for about 90 days, typically an A1c is a good marker of your sugars over the last 3 months (but like we discussed, ignore your current [id number] when someone comes in with DKA, that process comes so "hard and fast" that people's A1c's look pretty atrociousbut is not really a marker of the last 3 months, for this time only) - A1c higher than 7.0 starts to "not quite linearly" correlate to "high sugars clogging arteries". Given that an A1c of 7.0 more or less translates to "any given moment blood sugar" of about 160, it is also fairly reasonable to assume that sugars higher than this do start to lead to "clogged arteries" (technically known as microvascular ischemia) - generally speaking, the day today goal will be keeping fasting sugars pretty darn normalsomewhere around the 100, and having sugars get back to between [id number] about 2 hours after you are done eating (more on that below) - there is nothing about being a type I diabetic that makes you need to change your diet (that is exceedingly true for type 2 diabetes where one of the main causes is insulin resistance, generally brought on by eating simple/starchy/sugary carbohydratesbut this is not your physiology. The only thing to keep in mind with the simple carbs is that it will probably take a lot more insulin to get that amount of carbohydrates out of your bloodstream and into your muscles) insulin management - with insulin management we try to mimic normal physiologythe way our body is made, our pancreas is always making some degree of insulin. When we are in a fasting state, it is secreting a small amount of insulin to process what ever is remaining from when we last ate, as well as to process the little bits of sugar that are liver constantly secretes into her bloodstream. When we eat, our pancreas makes a surge of insulina higher surge for more carbohydrates, or a lower surge for less carbohydrates. - Since no insulin "self adjusts" right now we have to do this with 2 different insulins (Lantus as a long-acting insulinsee below, and log as a short acting insulinsee below). When we are able to transition you to an insulin pump, it will be the same mindsetbut the "basal rate" of the pump will replace the Lantus, and instead of needing to inject short acting insulin at each meal, you will simply punch the number for the bolus dose into the pump. - As a "preview upcoming attractions"remember that when you get an insulin pump it is not yet a "external pancreas" or something that you can just "plug and play"right now the technology is not yet there. I do suspect over the next 5 years when bureaucracy and medical legal considerations allow, AI will probably make it to where the pump and a continuous glucose monitor will do most of the work, and you will just need to occasionally follow sugars through the day to "supervise that the technology is working right"but as it currently stands, an insulin pump and continuous monitor make life much easier/more convenient (i.e. less "high maintenance") but you will still be "the brains of the operation" - until we are able to get an insulin pump for you, we have you use injectable insulin the basics: - Lantus (glargine)this is a long-acting insulin. As above noted, this will cover your fasting state/basal metabolism. When injected, Lantus slowly kicks in over about 2 hours, never has a peak in activity, and then slowly wears off between hours 1824. You can largely "great" your Lantus dose by seeing what your blood sugar is in a fasting state. The Lantus dose will not really have much day today variationif it needs to be adjusted, it will largely be that you are seeing abnormal fasting sugars, and then in discussion with your medical team, the Lantus dose gets adjusted. As a starting point, right now it looks like your Lantus dose will be 20 units a day log insulin (Humalog, NovoLog)these are short acting insulins. These will be what you use to "cover meals". These short acting insulins kick in over 15-30 minutes, reach a peak of activity in about 90 minutes, and are gone by 3-4 hours. This will be what you learn to adjust based on what you are eating learning to vary the log dose ----- the basic concept is that if you eat something with more carbohydrates, it will require more short acting insulin to get that sugar out of your bloodstream and into your muscles; if you eat something with less carbohydrates, it will require less insulin to get the sugar out of your bloodstream and into your muscles ----- Because intestinal absorption peaks around an hour after you eat, and log insulin peaks around 90 minutes after you inject it, it is pretty reasonable to "grade the dose" by checking your sugar about 2 hours after eating/injecting short acting insulin (again with a goal of about [id number]) --- there are 2 different ways to figure out your dose of log insulin: "Mathematical carb counting" and "soft carb counting" "soft carb counting"this works off of the idea that "like begets like"and with a little bit of educated trial and error, you will start to see how much insulin it takes for different types of meals. - With "soft carb counting" start with a very arbitrary 8 units of insulin at each mealif you are not sure how many carbs are and what you are eating, take 8 units, and follow your sugar for the next 2 hours. You will start to see trendsand if the 8 units ends up being "about right" what you will probably see is the following: - If you eat something mid range with carbohydrates, the 8 units will probably be about perfectand you will see a 2-hour later sugar of [id number] - if you eat something really high in carbohydrates, the 8 units will almost certainly not be enoughand you will see a 2-hour later sugar way higher. With that, you will learn to give yourself more insulin (maybe 10 units, maybe 12 units, etc.) until you start to see sugars after that/similar meals of [id number] - If you eat something fairly low in carbohydrates, the 8 units will probably be too much, and you will see/feel low sugars (and because of the short acting insulin being so predictable) if you have a low sugar it will probably be no more than a few hours after eating/injecting (see below as far as managing low sugars) to help speed up the learning curve, write down what you eat, how much insulin you took, and what the 2-hour sugar reading is. Typically then, you will start to see that something like chicken and broccoli will require a similar amount of insulin to pork and asparagus. You will see that a plate of spaghetti requires a similar amount of insulin to eating pizza (and you will realize it is a lot more insulin than other foods!), and you will see that things like eggs and black coffee will be pretty similar to maybe just eating some fruit and a protein. Most of my college students that are a new onset type I diabetic really figure this out quickfigure that the hard part of the learning curve will probably be about a month. It is critically important, however, even once you get comfortable with things, to always "grade your work"because people really do not feel bad with sugars in the 200, or even 300 range people can be clogging arteries and never feel it. "Mathematical carb counting"with this, you would figure out how many grams of carbohydrates are and what you are eating, and then give yourself 1 unit of insulin for about every 10 g of carbohydrates you eat. This can feel more precise, but often times the math can be off by a little bitbecause of the fact that you would have to figure out how many grams of carbohydrates are and a serving of what you are eating, figure out how many servings you are eatingsolve for how many grams of carbohydrates you are eating, and then divide that by 10 to figure out how many units of insulinso it is a bit of an exact science even though it feels exact; it also is fairly labor-intensive. Most people do not really want to do this. We do it in the hospital because it is easier to be more precise when the kitchen tells us exactly how many grams of carbohydrates. I mention this only because it is something you can "xena with"but if you do, it still really important to "grade your work" afterwardsbecause as a noted above, it can feel precise, but be far less precise than it actually is. So even if you did mathematical carb counting, you would still want to check sugars about 2 hours later to ensure a sugar range between [id number] Low sugars: A low sugar "feels terrible like you are going to " but honestly is usually not that dangeroustypically when the low is going to feel like is sweaty, shaky, maybe a little pale and weak. If you are feeling a lowdefinitely check your sugar, because while most of the time it will be that the sugar is low, sometimes people will feel low just to a fast rate of change (say your sugar went from 300-150 really quicksometimes that can create a sensation of a low). Truly low would be under 70, but because insulin will, of course, push sugars lower, it would be reasonable to start to "correct a low" even if you are getting into the double digits and feeling lousy. Most of the time, 15-20 g of carbohydrates is enoughand, most of the time, people probably eat 10 times that and turn the low back into a high and create a roller coaster. If you are feeling low, and your sugar is either low normal or truly loweat about 15-20 g of carbohydrates, and then follow how you feel and what your sugar is doing. If the low is more "stubborn"then of course eat more, but most of the time it just takes a few minutes for what you have eaten to get absorbed and fix the problem. "sick day"once you get comfortable with the basics (above) we will want to start to teach you "sick day rules"what this means is when people are sick, often that physiologic stress will increase cortisol, which will increase sugars, which will lead to a need for more insulin. For some people it is a small amount of extra insulin, for other people it can sometimes be as much as double of the insulin (this is far more rare)for now I mention it so that you are aware if you get sick with something, and your sugars seem to be higher than you expect, until we truly figure out your body/build your individual "sick day rules" it would be pretty reasonable to call the office for guidance if you are sick with a viral things/etc. and struggling to keep your sugars in line "marching orders" Lantus 20 units daily log insulin variable at each meal (starting with 8 units at a meal and learning from "like begets like" or starting with 1 unit of insulin per 10 g of carbs and "grading your work afterwards") follow sugars closely (if we are able to get you with continuous glucose monitor this is super easy; if for now we have to use fingerstickscheck 4 times a day (fasting in the morning to "grade the Lantus" and then 2 hours after each meal to "grade the mealtime dosing") keep a log of the following: What you ate/how much insulin you took/what your sugar was 2 hours laterthis will help you and your medical team troubleshoot if things are not following in line - do not get frustrated with how high maintenance this is for the first month or soit gets way easier and way more intuitive We will be adjusting your short acting(meal-time insulin) and long acting insulin(background insulin) at the same proportion. So, if we have to adjust the one, we will adjust the other to so that they stay at 50/50. You are scheduled with Dr reno at [facility]. Please make sure you follow up with her at Wednesday03/16/2025 at 2:45 pm. Please call the clinic at [phone] and make sure you are scheduled before you visit. Pending Studies at Discharge: No Stand-Alone Forms: My [facility] [employer], Work/School Release, Smoking Cessation Medications and DC Order Prescriptions: New insulin glargine [Lantus Solostar U-100 Insulin] 100 unit/mL (3 mL) insulin pen 20 unit subcut QAM Qty: 3 0RF insulin aspart U-100 [Novolog FlexPen U-100 Insulin] 100 unit/mL (3 mL) insulin pen 8 unit subcut AC Qty: 15 0RF Rx Instructions: Vary the dose based on carbs eaten but around 8U per each meal. No Action (DME) Dexcom G7 Sensor Device See Rx Instructions .Route Qty: 3 0RF Rx Instructions: Apply new sensor every 10 days diphenhydramine HCl [Benadryl Allergy] 25 mg Tablet 50 mg PO ONCE Discharge Orders: Discharge Order (Routine); Ordered 03/09/25 Ordered By: Evie Reno Admission Data Admit Date/Time: 03/07/25 22:49 Attending Provider: Jono Wolfe Admit Provider: Marc Cowan Primary Care Provider: [facility] Other Providers: Marc Cowan Other Interventions: Discharge Summary Assessment (RN) Last Done: 03/09/25 13:51 Supervising Physician Co-Signing Physician Notes I personally examined the patient and verified all monzon points of history and exam, discussed case, and agree with decision making with Dr Reno Feeling better. Feeling up to going home. Expresses good understanding of plan of care. Reiterated with him and gave a chance to ask questions. Answered questions to the best of my ability and to his satisfaction. Mother and aunt present as well.Vitals noted, in general he is awake and alert pleasant no distress. HEENT normocephalic atraumatic mucous membranes moist. Breathing unlabored no accessory muscle use good effort. Skin without rashes pallor or icterus. Neuro without focal deficits. Labs and diagnostics noted. New onset type 1 diabetes/DKAimproving. Safe/stable for home. Educated extensively. Personally prepared patient education materials myself. Subcu insulinhe prefers "soft carb counting to mathematical carb countingseems quite reasonable. Discussed that insulin doses will be likely ongoing adjusted over the next few weeksbut for now 20 units of Lantus daily and in terms of soft carb counting about 8 units per meal (vary based on carbs and follow-up postprandial glucoses) or if he were to do mathematical carb counting, carb ratio of 1:10but again follow-up postprandial glucoses) prescriptions for glucometer etc. written, but also case management working on getting him a CGM right away. Set up with local PCP and endocrine.
[2025-03-09] MEDS: POTASSIUM CHLORIDE 20 MEQ/15 ML UDC PO STA (08:48)
[2025-03-09 12:19] VITALS: BP 112/68; PULSE 83; RESP 18; TEMP 98.4; O2SAT 96
--- NOTE | 2025-03-09 14:25 | Billing Data ---
Date of Service March 09, 2025 Coding Level of Care Code 27537 INP/OBS DISCH >30 MIN
--- NOTE | 2025-03-09 19:53 | Electrocardiogram Report ---
Test Reason : Blood Pressure : */* mmHG Vent. Rate : 94 BPM Atrial Rate : 94 BPM P-R Int : 200 ms QRS Dur : 98 ms QT Int : 362 ms P-R-T Axes : 89 77 75 degrees QTcB Int : 452 ms Normal sinus rhythm Incomplete right bundle branch block No previous ECGs available Confirmed by Gustavo Andrea ([id number]) on 03/09/2025 7:52:49 PM [facility] By: [facility] Confirmed By: Gustavo Andrea
== END 2025-03-09 15:50 | disposition home or self-care (01) | DRG 639 ==
LOC: ED 19:48 → SUATTDRO 22:49 → 4W 22:49
DX: E10.10 Type 1 diabetes mellitus with ketoacidosis without coma